=== PATIENT | female | born 1965 | race Caucasian/White ===

== ENCOUNTER → 2020-01-31 | Day surgery (SDC) | payer BC | END | disposition home or self-care (01) | LOC: FRADUS-SUR 10:17 | PROVIDERS: ATTEND Surgery Surgical Oncology | PROC: 0HBU3ZX Excision of Left Breast, Percutaneous Approach, Diagnostic (ICD-10-PCS; principal; 2020-01-31) | DX: N60.32 Fibrosclerosis of left breast (principal); N61.22 Granulomatous mastitis, left breast; N63.21 Unspecified lump in the left breast, upper outer quadrant | CPT/HCPCS: 19085; 77065-TC; 88305-TC; 88312-TC; A9579; C1887 ==